=== PATIENT | male | born 1960 | race Caucasian/White ===

== ENCOUNTER 2017-11-27 11:50 | Day surgery (SDC) | payer BC ==
[~2017-11-27] VITALS: Ht 170.2 cm; Wt 91.0 kg
[~2017-11-27 11:50] MED LIST: CLOB.05TO
== END 2017-11-27 14:32 | disposition home or self-care (01) ==
LOC: ORSCSDS 11:50
PROVIDERS: Internal Medicine Gastroenterology
PROC: 0DBK8ZX Excision of Ascending Colon, Via Natural or Artificial Opening Endoscopic, Diagnostic (ICD-10-PCS; principal; 2017-11-27 13:00)
PROC: 0DBN8ZX Excision of Sigmoid Colon, Via Natural or Artificial Opening Endoscopic, Diagnostic (ICD-10-PCS; principal; 2017-11-27 13:00)
PROC: 0DBL8ZX Excision of Transverse Colon, Via Natural or Artificial Opening Endoscopic, Diagnostic (ICD-10-PCS; principal; 2017-11-27 13:00)
DX: Z12.11 Encounter for screening for malignant neoplasm of colon (principal); D12.3 Benign neoplasm of transverse colon; K63.5 Polyp of colon; K64.8 Other hemorrhoids; K57.30 Diverticulosis of large intestine without perforation or abscess without bleeding
CPT/HCPCS: 88305; J7120

== ENCOUNTER 2018-05-17 20:22 | Emergency (ER) | payer BC ==
[~2018-05-17] VITALS: Ht 170.2 cm; Wt 87.5 kg
[2018-05-17] MEDS ORDERED: HYDR25SUP PR (21:15)
== END 2018-05-17 21:26 | disposition home or self-care (01) ==
LOC: ER 20:22
DX: K64.8 Other hemorrhoids (principal)
CPT/HCPCS: 36415; 93005; 93010; 99283-25